=== PATIENT | female | born 1945 | race Caucasian/White ===

== ENCOUNTER 2024-03-10 10:23 | Outpatient (REF) | payer MEDICARE, SELFPAY ==
[2024-03-10 11:34] LABS: Erythrocyte Sedimentation Rate 7 MM/HR (0-20)
[2024-03-10 12:05] LABS: Folate 16.1 ng/mL (> or = 4.0); Vitamin B12 527 pg/mL (200-900)
[2024-03-10 12:30] LABS: Anion Gap 13 (12-20); Blood Urea Nitrogen 13 mg/dL (9-16); Calcium 10.1 mg/dL (8.4-10.2); Carbon Dioxide 26 mmol/L (22-29); Chloride 108 mmol/L (96-108); Estimated Glomerular Filt Rate 45; Glucose Random 109 mg/dL (60-115); Potassium 4.2 mmol/L (3.3-5.1); Sodium 143 mmol/L (135-145)
[2024-03-10 12:35] LABS: TSH reflex Free T4 0.74 uIU/mL (0.32-4.0)
== END 2024-03-10 10:24 | disposition home or self-care (01) ==
LOC: HO.LAB 10:23
PROVIDERS: PCP Internal Medicine; Visit Provider Psychiatry & Neurology Neurology
DX: G31.84 Mild cognitive impairment of uncertain or unknown etiology (principal)
CPT/HCPCS: 36415; 80048; 82607; 82746; 84443; 85652

== ENCOUNTER 2025-02-18 10:16 | Outpatient (AMB) | payer MEDICARE, SELFPAY ==
--- NOTE | 2025-02-18 10:42 | MHC.OFFVIS ---
Intake Visit Reasons: 6m Accompanied by: Son Allergies Penicillins (PENICILLINS) Allergy (Unknown, Unverified 02/18/25 10:46) SWELLING shellfish derived (SHELLFISH DERIVED) Allergy (Unknown, Unverified 02/18/25 10:46) SWELLING Medication List - Last Reconciled 02/18/25 by Jennifer Redd CNP amlodipine 10 mg PO DAILY omeprazole 20 mg PO DAILY sertraline 25 mg PO DAILY vibegron (Gemtesa) 75 mg PO DAILY HPI Comments Details: She was doing okay. Memory was about the same, some days better than others. Forgetful. Mood was okay, but could still be agitated at times. She was previously taking sertraline 50mg/day, but was now taking 25mg/day. Sleep was okay. No wandering or safety issues.?Needs help with bathing and dressing. Appetite was okay. She does some puzzles and watches TV during the day. Lives with her son and [id number]. Around 2021, she was noted to have some mild memory issues and mood swings where she would get angry and then 5 minutes later it was as if nothing ever happened. No triggers. Spends most of her time in her room watching TV. Sleeps a lot during the day and watches TV late into the night. Has chronic urinary incontinence. She needs help with personal hygiene and bathing, but does not resist bathing. Eats well. Gets adequate amount of sleep. Does not interact much with family. She never gets violent. No gait problems. 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 The largest lesion being in the left parietal area 1.4 x 1 x 1.3 cm. There is a history of a previous stroke in 2008 with some right-sided weakness which probably correlates with the left parietal area of MRI abnormality. She has a long history of high blood pressure for most of her life, hyperlipidemia, and osteoarthritis with knee and back pain. [facility], [facility] Medical History (Updated 02/18/25 @ 10:53 by Jennifer Redd CNP) Depression Vascular dementia MCI (mild cognitive impairment) Review of Systems Const Denies chills, Denies daytime sleepiness, Denies difficulty sleeping, Denies fatigue, Denies fever(s), Denies frequent falls, Reports headache(s), Denies increased appetite, Denies poor appetite, Denies snoring, Denies weakness, Denies weight gain and Denies weight loss Eyes Denies loss of vision ENT Denies vertigo, Reports dizziness, Reports headache(s) and Denies neck pain Card Denies chest pain at rest, Denies chest pain with activity, Denies syncope, Denies leg edema, Denies palpitations, Denies dyspnea and Denies dyspnea on exertion Resp Denies cough, Denies dyspnea, Denies dyspnea on exertion and Denies snoring GI Denies abdominal pain, Denies constipation, Denies heartburn, Denies diarrhea and Denies nausea Denies urinary frequency, Denies urinary incontinence and Denies urinary urgency Musc Denies abnormal gait, Reports back pain, Denies myalgias, Denies arthralgias, Denies neck pain, Denies numbness and Denies tingling Neuro Denies abnormal gait, Denies vertigo, Reports dizziness, Denies syncope, Denies frequent falls, Reports headache(s), Denies lack of coordination, Denies loss of vision, Reports memory loss, Denies numbness, Denies Other visual disturbances, Denies restless legs, Denies seizure-like activity, Denies tingling, Denies paresthesias, Denies tremor(s) and Denies weakness Psych Reports anxiety, Reports depression, Denies auditory hallucinations, Reports memory loss and Denies visual hallucinations Endo Denies fatigue and Denies palpitations Physical Exam Const Other: General Appearance:? normal, in no acute distress. Heart:? S1, S2 normal, no murmurs. Lungs:? clear anteriorly and posteriorly. Musculoskeletal:? normal. Extremities:? no edema. Psych:? alert, as below. Neuro Other: Abnormal Neurological Findings:?MMSE 22/30. Mental Status: alert, as below. Cranial Nerves: Pupils are equal, round, and reactive to light. External ocular muscles are intact. Visual willis are full, no ptosis. Face is symmetrical, no facial weakness or droop. Facial sensations are normal. Tongue protrudes in midline. Palate elevates symmetrically. Shoulder shrugging is normal Motor Examination: Normal muscle tone, bulk and strength. No atrophy or fasciculations. No drift of the extended upper extremities. DTR 2+. Plantars are flexor. Sensory Exam: Normal light touch, temperature, pinprick, vibration, and joint-position sensations. Rhomberg sign is absent. Coordination: No ataxia. No titubation. Gait Exam: Within normal limits. Cerebellar Signs: [id number] is okay. Extrapyramidal System: No tremor, rigidity with normal facial expressions. No bradykinesia. No bradyphrenia. Normal arm swing and posture. No propulsion or retropulsion. Speech: Normal. MMSE Level of Consciousness: Alert. Orientation: Knows correct year, month, date, day and season. Does not know correct city (says [place]) or county. Knows state. Does not know location (says [facility]). Knows correct floor. Registration: Able to register 3 objects. Attention: Serial 7's unable. Recall: Able to recall 1 out of 3 objects. Language: Normal spontaneous speech, fluency, repetition, naming, comprehension, reading, and writing. Total Score: 21/30. Results Reviewed Results Reviewed: 03/30/24 EEG-Mild abnormality with diffuse 7.5Hz slowing. Labs normal. MRI brain 11/21/22 mild to moderate white matter microvascular disease. The largest lesion being in the left parietal area 1.4 x 1 x 1.3 cm Assessment & Plan Assessment & Plan (1) Vascular dementia: Code(s): F01.50 - Vascular dementia, unspecified severity, without behavioral disturbance, psychotic disturbance, mood disturbance, and anxiety Category: Medical Qualifiers: Dementia severity: unspecified severity Dementia behavioral or psychological symptom: with mood disturbance Qualified Code(s): F01.53 - Vascular dementia, unspecified severity, with mood disturbance Plan: Start memantine 5mg 1 tablet twice a day, use/side effects reviewed. Stay physically and socially active. Follow up in 3 months or sooner as needed. (2) Depression: Code(s): F32.A - Depression, unspecified Category: Medical Qualifiers: Depression Type: unspecified Qualified Code(s): F32.A - Depression, unspecified Plan: Continue sertraline 25mg 1 tablet daily. Medications: New memantine (Namenda) 5 mg PO BID 180 tabs 0RF 90 days Coding Level of Care Code Est Pt Level 4 (11495) Diagnoses Vascular dementia with mood disturbance, unspecified dementia severity F01.53 Dementia severity: unspecified severity Dementia behavioral or psychological symptom: with mood disturbance Depression, unspecified depression type F32.A Depression Type: unspecified
--- OUTSIDE RECORDS SUMMARY | 2025-02-18 12:20 | XMS_ITS | Clinical Summary ---
Author Organization [facility] Address [address] [place] [address] Care Team Providers Care Car Repairer Helper Name Role Phone Unavailable Primary Care Provider Unavailabl e Source Comments PLEASE NOTE, if this patient is a minor, it may be UNLAWFUL to discuss sensitive information that is contained in these records (such as FAMILY PLANNING, MENTAL HEALTH or SUBSTANCE ABUSE) with the minor patient's parent or other person without the patient's specific authorization.[facility] Immunizations Immunization Administration Dates Next Due PFIZER COVID VACCINE, PURPLE CAP, 12+ 09/08/2020 ,08/18/2020 Social History Tobacco Use Types Packs/Day Years Used Date Smoking Tobacco: Never Assessed Social Connections Answer Date Recorded Social Connections and Isolation 0 08/18/2020 Financial Resource Strain Answer Date R ecorded Financial Resource Strain 0 2020 Stress Answer Date Recorded Stress 0 08/18/2020 Physical Activity Answer Date Recorded Physical Activity 0 08/18/2020 Food Insecurity Answer Date Recorded Food 0 08/18/2020 Transportation Needs Answer Date Record ed Transportation 0 08/18/2020 Housing Stability Answer Date Recorded Housing 0 08/18/2020 Safety and Environment Answer Date Luis rded Safety 0 08/18/2020 Utilities Answer Date Recorded Utilities 0 08/18/2020 Employment Answer Date Recorded Employment 0 08/18/2020 Comments Unknown Sex and Gender Information Value Date Recorded Sex Assigned at Not on file Legal Sex Female 10:23 AM PDT Gender Identity Not on file Sexual Orientation Not on file Plan of Treatment Health Maintenance Due Date Last Done Comments Tobacco Screening 1944 Hypertension Screening (#1) 1962 Medicare Annual Wellness Visit 1962 Imm-Zoster, Recombinant (1 of 2) 1994 Bone Density Screening 2009 Falls Prevention 2009 Imm-RSV (adult) (1 - 1-dose 75+ series) 2019 Imm-DTaP/Tdap/Td (2 - Td or Tdap) 10/24/2022 013 Alcohol and Drug Screen 04/08/2024 Depression Annual Screen 04/08/2024 [id number] ( season) 2024 021, 08/18/2020 Imm-Influenza (#1) 2024 02/16/2019, 0 12/31/2016, 02/26/2016, Additional history exists Imm-Pneumococcal 50+ Completed 10/12/2015, 07/22/19 13 Insurance [facility]
--- OUTSIDE RECORDS SUMMARY | 2025-02-18 12:20 | XMS_ITS | Clinical Summary ---
Author Organization [place] [address] [address] Address [address] [place] [phone] Phone Care Team Providers Care Avionics Electrical Engineer Name Role Phone See Garcia MD Primary Care Provider [phone] Allergies Active Allergy Reactions Criticality Noted Date Comments Other 08/20/2018 SEASONAL ALLERGIES Penicillins Anaphylaxis High 02/18/2012 Shellfish Derived 06/03/2017 Medications aspirin 81 mg EC tablet Take 1 Tablet by mouth daily. 4 Active acetaminophen (TYLENOL 8 HOUR) 650 mg 8 hr tablet TAKE 1 TABLET BY MOUTH TWICE DAILY 3 Active clotrimazole-be tamethasone (LOTRISONE) 1-0.05 % cream Apply 1 Application topically 2 (two) times a day. Apply to affected area 30 g 1 4 Active amLODIPine (NORVASC) 10 mg tablet Take 1 tablet (10 mg total) by mouth 1 (one) time each day. 90 tablet 3 5 05/21/19 26 Active irbesartan (AVAPRO) 300 mg tablet Take 1 tablet (300 mg total) by mouth 1 (one) time each day. Take 1 Tablet by mouth daily. 90 each 3 5 05/21/19 26 Active omeprazole (PriLOSEC) [address] capsule Take 1 capsule (20 mg total) by mouth 1 (one) time each day. 90 capsule 3 5 Active sertraline (ZOLOFT) 25 mg tablet Take 1 tablet (25 mg total) by mouth 1 (one) time each day. 90 tablet 3 5 Active atorvastatin (LIPITOR) 40 mg tablet TAKE 1 TABLET(40 MG) BY MOUTH AT BEDTIME 90 tablet 1 5 Active vibegron (Gemtesa) 75 mg tablet tablet Take 1 tablet (75 mg total) by mouth 1 (one) time each day. 90 tablet 3 5 01/03/20 26 Active Active Problems Problem Noted Date Diagnosed Date Cognitive impairment 12/15/2024 Assessment & Plan (12/15/2024 4:20 PM EDT): CKD stage 3a, GFR 45-59 ml/min (CMS/[facility] V24, CMS /[facility] V28) 08/18/2024 Assessment & Plan (12/15/2024 4:20 PM EDT): Major depressive disorder with current active ep isode 03/25/2024 Prediabetes 02/19/2024 Assessment & Plan (12/15/2024 4:20 PM EDT): Assessment & Plan (05/26/2024 10:58 AM EST): We will continue to follow hemoglobin A1c. Orders: Urology/Incontinence Supplies General supply request Shower chair General supply request Complete blood count; Future Comprehensive metabolic panel; Future Thyroid stimulating hormone; Future Hemoglobin A1c; Future Varicose veins of right lower extremity with leslee ma 05/21/2019 Gastroesophageal reflux disease without esophagi tis 05/21/[address] 02/22/2016 Overview (02/19/2024): CT done in the ER on 02/19/16 showed multiple small tiny lucencies in the calvarium Patient had evaluation with Dr. Charles - did not suspect cancer or multiple myeloma. Plasma studies reassuring. B12 deficiency 05/31/2013 Hyperlipemia 05/31/2013 Shoulder pain 11/25/2012 Bilateral cataracts 07/21/2012 Osteopenia 04/21/2012 Assessment & Plan (05/26/2024 10:58 AM EST): History of osteopenia. Will continue to follow. Orders: Urology/Incontinence Supplies General supply request Shower chair General supply request Complete blood count; Future Comprehensive metabolic panel; Future Thyroid stimulating hormone; Future Hemoglobin A1c; Future HTN (hypertension) 02/18/2012 Assessment & Plan (05/26/2024 10:58 AM EST): Blood pressure is reasonably controlled the office today, no change to current regimen which includes amlodipine, irbesartan. Orders: Urology/Incontinence Supplies General supply request Shower chair General supply request Complete blood count; Future Comprehensive metabolic panel; Future Thyroid stimulating hormone; Future Hemoglobin A1c; Future Encounters Date Type Department Care Team Description 02/15/2025 Telephone Adult Medicine [address] [phone] See Garcia MD 01/27/2025 9:52 AM EDT - 01/27/2025 11:59 PM EDT Hospital Encounter Radiology Department - [address] [phone] Abnormal mammogram Discharge Disposition: Home or Self Care 01/27/2025 9:51 AM EDT - 01/27/2025 11:59 PM EDT Hospital Encounter Radiology Department - [address] [phone] Abnormal mammogram Discharge Disposition: Home or Self Care 01/07/2025 10:45 AM EDT Office Visit Urogynecology - [address] [phone] Priti Cabello NP OAB (overactive bladder) (Primary Dx) 12/26/2024 11:07 AM EDT - 12/26/2024 11:59 PM EDT Hospital Encounter Radiology Department - [address] [phone] Encounter for screening mammogram for breast cancer Discharge Disposition: Home or Self Care 12/15/2024 11:15 AM EDT Office Visit Adult Medicine [address] [phone] See Garcia MD CKD stage 3a, GFR 45-59 ml/min (CMS/HCC V24, CMS/[facility] V28) (Primary Dx); Prediabetes; Memory deficit; Urinary incontinence, unspecified type; Cognitive impairment 12/09/2024 Telephone Adult Medicine [address] [phone] See Garcia MD from Last 3 Months Immunizations Immunization Administration Dates Next Due Influenza trivalent, 0.5mL ( Fluad) 65yo and older 12/22/2023,01/21/2023,02/16/2019,12/31,12/29/2014 Influenza trivalent, 0.5mL, preservative free (Fluarix; FluLaval; Fluzone) ages 6mo and older (Afluria) 3 years and older 02/26/2016,06/28/2014,04/21/2012 Influenza, Unspecified 02/02/2021 Pneumococcal conjugate 13 va lent (Prevnar 13, PCV13) 2mo and older 10/12/2015 Pneumococcal polysaccharide 23 valent (Pneumovax 23) 2yo and older 07/21/2012 Tdap Tetanus diptheria acell ular pertussis (Boostrix; Adacel) 7yo and older 10/24/2012 Surgical History Surgery Date Site/Laterality Comments HYSTERECTOMY 2006 PROCEDURE: HISTORICAL VAGINAL HYSTERECTOMY W/O BSO; COMMENT: prolapse CATARACT EXTRACTION Bilateral PROCEDURE: HISTORICAL CATARACT REMOVAL Medical History Medical History Date Comments HTN (hypertension) 02/18/2012 DX:HTN (hyper tension) CVA (cerebral infarction) 02/18/2012 DX:CVA (cerebral infarction) UTI (lower urinary tract infection) 02/19/2012 DX:UTI (lower urinary tract infection) Osteopenia 04/21/2012 DX:Osteopenia Bilateral cataracts 07/21/2012 DX:Bilateral cataracts Shoulder pain 11/25/2012 DX:Shoulder pain Hyperlipemia 05/31/2013 DX:Hyperlipemia B12 deficiency 05/31/2013 DX:B12 deficienc y Prediabetes DX:Prediabetes Gastroesophageal reflux dise ase without esophagitis 05/21/2019 DX:Gastroesophageal reflux d isease without esophagitis Family History Medical History Relation Name Comments No Known Problems Aunt No Known Problems Brother No Known Problems Father No Known Problems Maternal Grandfather No Known Problems Maternal Grandmother No Known Problems Mother No Known Problems Other No Known Problems Paternal Grandfather No Known Problems Paternal Grandmother Breast cancer Sister 55ish No Known Problems Uncle Blindness Neg Hx Cataracts Neg Hx Glaucoma Neg Hx Macular degeneration Neg Hx Strabismus Neg Hx Relation Name Status Comments Aunt Brother Father Maternal Grandfather Maternal Grandmother Mother Other Paternal Grandfather Paternal Grandmother Sister 55ish Alive Uncle Social History Tobacco Use Types Packs/Day Years Used Date Smoking Tobacco: Never Smokeless Tobacco: Never Tobacco Cessation:Counseling Given: Not Answered Alcohol Use Standard Drinks/Week Comments No 0 (1 standard drink = 0.6 oz pur e alcohol) Comments No Sex and Gender Information Value Date Recorded Sex Assigned at Not on file Legal Sex Female 12:40 PM EST Gender Identity Not on file Sexual Orientation Not on file Obstetrics History Para Term AB IAB SAB Ectopic Multiple Livin g Live Births 3 3 3 3 Date Outcome GA Total Labor Labor/2nd/3rd Weight Sex Type Anes PTL Tatianna A1 A5 Name Clin Term Term Term Last Filed Vital Signs Vital Sign Reading Time Taken Comments Blood Pressure 154/87 01/07/2025 10:38 AM EDT Pulse 87 01/07/2025 10:38 AM EDT Temperature 36.5 C (97.7 F) 12/15/2024 11:14 AM EDT Respiratory Rate 16 12/15/2024 11:14 AM EDT Oxygen Saturation 97% 05/26/2024 9:48 AM EST Inhaled Oxygen Concentration - - Weight 62.6 kg (138 lb) 12/15/2024 11:14 AM EDT Height 160 cm (5' 3 ) 05/26/2024 9:48 AM EST Body Mass Index 24.45 05/26/2024 9:48 AM EST Plan of Treatment Upcoming Encounters Date Type Department Care Team (Late st Contact Info) Description 03/31/2025 10:00 AM EST Office Visit Adult Medicine [address] [phone] See Garcia MD [address] [place] [address] 08/17/2025 2:00 PM EDT Office Visit [facility] [address] [place] [phone] Yonatan Gamboa MD [address] [place] [phone] Health Maintenance Due Date Last Done Comments Zoster Vaccines (1 of 2) 1964 RSV Immunization Adult Patients (1 - 1-dose 75+ series) 2019 Social Influencers of Health Screening 03/17/2022 DTaP,Tdap,and Td Vaccines (2 - Td or Tdap) 10/24/2022 10/24/2012 COVID-19 Vaccine ( - season) 2024 12/22/2023, 07/21/2022, 05/14/2021, Additional history exists Influenza Vaccine (#1) 2024 , 01/21/2023, 02/02/2021, Additional history exists Falls Risk Assessment 12/15/2025 12/15/2024, 023 Hypertension/CHF/CAD Annual BMP Blood Test 12/15/2025 12/15/2024, 06/03/2023 Medicare Annual Wellness Visit 12/15/2025 12/15/2024 Cholesterol Screening (Lipid Panel) 06/03/2028 06/03/2023 Osteoporosis Screening (Bone Density Screening) 03/27/2031 03/27/2021 Pneumococcal Vaccine: 50+ Years Completed 10/12/2015, 07/21/2012 Depression Screening Completed 12/15/2024, 11/18/19 24 HIB Vaccines Aged Out No longer eligi ble based on patient's age to complete this topic HPV Vaccines Aged Out No longer eligi ble based on patient's age to complete this topic Hepatitis A Vaccines Aged Out No long er eligible based on patient's age to complete this topic Hepatitis B Vaccines Aged Out No long er eligible based on patient's age to complete this topic IPV Vaccines Aged Out No longer eligi ble based on patient's age to complete this topic MMR Vaccines Aged Out No longer eligi ble based on patient's age to complete this topic Meningococcal ACWY Vaccine Aged Out N o longer eligible based on patient's age to complete this topic Meningococcal B Vaccine Aged Out No l onger eligible based on patient's age to complete this topic RSV Immunization Patients Under 20 months Aged Out No longer eligible based on patient's age to complete this topic Varicella Vaccines Aged Out No longer eligible based on patient's age to complete this topic Procedures Procedure Name Priority Date/Time Associated Diagnosis Comments US BREAST LIMITED RIGHT Routine 01/27/2025 10:39 AM EDT Abnormal mammogram MG MAMMO DIGITAL DIAGNOSTIC W BILL RIGHT Routine 01/27/2025 9:59 AM EDT Abnormal mammogram MG MAMMO DIGITAL SCREENING W BILL BILAT Routine 12/26/2024 11:16 AM EDT Encounter for screening mammogram for breast cancer COMPLETE BLOOD COUNT Routine 12/15/2024 12:14 PM EDT At risk for falls Prediabetes Primary hypertension Osteopenia, unspecified location COMPREHENSIVE METABOLIC PANEL Routine 12/15/2024 12:14 PM EDT At risk for falls Prediabetes Primary hypertension Osteopenia, unspecified location THYROID STIMULATING HORMONE Routine 12/15/2024 12:14 PM EDT At risk for falls Prediabetes Primary hypertension Osteopenia, unspecified location HEMOGLOBIN A1C Routine 12/15/2024 12:14 PM EDT At risk for falls Prediabetes Primary hypertension Osteopenia, unspecified location PROTEIN AND CREATININE WITH RATIO, URINE Routine 12/15/2024 12:14 PM EDT CKD stage 3a, GFR 45-59 ml/min ([facility] V24, CMS/[facility] V28) PARATHYROID HORMONE INTACT Routine 12/15/2024 12:14 PM EDT Chronic kidney disease (CKD) stage G3a/A1, moderately decreased glomerular filtration rate (GFR) between 45-59 mL/min/1.73 square meter and albuminuria creatinine ratio les* (CMS/[facility] V24, CMS/[facility] V28) HM DEPRESSION SCREENING Routine 11/18/2023 LIPID PANEL Routine 06/03/2023 HM FALLS RISK ASSESSMENT Routine 11/19/2022 DXA BONE DENSITY STUDY 1+ SITS AXIAL SKEL Routine 03/27/2021 9:36 AM EST Other specified disorders of bone density and structure, other site Pain in right shoulder Other chronic pain Pain in left shoulder from Last 3 Months or Most Recently Relevant to Health Maintenance Results * US Breast Limited Right (01/27/2025 10:39 AM EDT) Anatomical Region Laterality Modality Breast Right Ultrasound 01/27/2025 11:0 1 AM EDT Impressions 01/27/2025 11:03 AM EDT 1. No mammographic evidence of malignancy 2. Heterogeneously dense Findings and recommendations were conveyed to the patient. BI-RADS CATEGORY: 2 - BENIGN RECOMMENDATION: Return to annual mammography. Return to annual mammography. Mammo Location: [facility], [address] [place] [address], [phone], . -------- FINAL REPORT -------- Dictated By: Wilson Loya Dictated Date: 01/27/2025 11:01 ET Assigned Physician: Wilson Loya Reviewed and Electronically Signed By: Wilson Loya Signed Date: 01/27/2025 11:03 ET Workstation ID: [id number] Transcribed By: Self Edit Transcribed Date: 01/27/2025 11:01 ET Narrative 01/27/2025 11:03 AM EDT RIGHTDIGITAL DIAGNOSTIC 3D MAMMOGRAPHY HISTORY: Workup for CC view medial middle depth asymmetry COMPARISON: Mammogram from 12/26/2024 Technique: CC view spot compression 3-D FINDINGS: Right breast CC view medial middle depth asymmetry becomes equal in density on spot compression and is consistent with benign summation of fibroglandular tissue. Sonographic evaluation demonstrates no focal abnormality BREAST DENSITY: C - The breasts are heterogeneously dense which may obscure small masses. EXAM: RIGHT BREAST TARGETED ULTRASOUND EVALUATION HISTORY: Workup for CC view medial middle depth asymmetry TECHNIQUE: Ultrasonographic examination is performed using a linear array transducer. Targeted right breast ultrasound from 12:00 to 6:00 of the medial breast evaluate mammographic finding. Real-time sonographic scanning was also performed by the radiologist FINDINGS: From 12:00 to 6:00 of the medial breast, no sonographic evidence of malignancy or other focal abnormalities were identified at the right breast in area of mammographic concern Procedure Note Wilson Loya MD - 01/27/2025 RIGHTDIGITAL DIAGNOSTIC 3D MAMMOGRAPHY HISTORY: Workup for CC view medial middle depth asymmetry COMPARISON: Mammogram from 12/26/2024 Technique: CC view spot compression 3-D FINDINGS: Right breast CC view medial middle depth asymmetry becomes equal indensity on spot compression and is consistent with benign summation offibroglandular tissue. Sonographic evaluation demonstrates no focalabnormality BREAST DENSITY: C - The breasts are heterogeneously dense which mayobscure small masses. EXAM: RIGHT BREAST TARGETED ULTRASOUND EVALUATION HISTORY: Workup for CC view medial middle depth asymmetry TECHNIQUE: Ultrasonographic examination is performed using a linear arraytransducer. Targeted right breast ultrasound from 12:00 to 6:00 of themedial breast evaluate mammographic finding. Real-time sonographicscanning was also performed by the radiologist FINDINGS: From 12:00 to 6:00 of the medial breast, no sonographic evidence ofmalignancy or other focal abnormalities were identified at the rightbreast in area of mammographic concern IMPRESSION: 1. No mammographic evidence of malignancy 2. Heterogeneously dense Findings and recommendations were conveyed to the patient. BI-RADS CATEGORY: 2 - BENIGN RECOMMENDATION: Return to annual mammography. Return to annual mammography. Mammo Location: [facility], [address] [place] [address], [phone], . -------- FINAL REPORT -------- Dictated By: Wilson Loya Dictated Date: 01/27/2025 11:01 ET Assigned Physician: Wilson Loya Reviewed and Electronically Signed By: Wilson Loya Signed Date: 01/27/2025 11:03 ET Workstation ID: [id number] Transcribed By: Self Edit Transcribed Date: 01/27/2025 11:01 ET us See Garcia MD IMG US PROCEDURES Final Result * MG Mammo Digital Diagnostic w Bill Right (01/27/2025 9:59 AM EDT) Anatomical Region Laterality Modality Breast Right Mammography 01/27/2025 11:0 1 AM EDT Impressions 01/27/2025 11:03 AM EDT 1. No mammographic evidence of malignancy 2. Heterogeneously dense Findings and recommendations were conveyed to the patient. BI-RADS CATEGORY: 2 - BENIGN RECOMMENDATION: Return to annual mammography. Return to annual mammography. Mammo Location: [facility], [address] [place] [address], [id number], . -------- FINAL REPORT -------- Dictated By: Wilson Loya Dictated Date: 01/27/2025 11:01 ET Assigned Physician: Wilson Loya Reviewed and Electronically Signed By: Wilson Loya Signed Date: 01/27/2025 11:03 ET Workstation ID: [id number] Transcribed By: Self Edit Transcribed Date: 01/27/2025 11:01 ET Narrative 01/27/2025 11:03 AM EDT RIGHTDIGITAL DIAGNOSTIC 3D MAMMOGRAPHY HISTORY: Workup for CC view medial middle depth asymmetry COMPARISON: Mammogram from 12/26/2024 Technique: CC view spot compression 3-D FINDINGS: Right breast CC view medial middle depth asymmetry becomes equal in density on spot compression and is consistent with benign summation of fibroglandular tissue. Sonographic evaluation demonstrates no focal abnormality BREAST DENSITY: C - The breasts are heterogeneously dense which may obscure small masses. EXAM: RIGHT BREAST TARGETED ULTRASOUND EVALUATION HISTORY: Workup for CC view medial middle depth asymmetry TECHNIQUE: Ultrasonographic examination is performed using a linear array transducer. Targeted right breast ultrasound from 12:00 to 6:00 of the medial breast evaluate mammographic finding. Real-time sonographic scanning was also performed by the radiologist FINDINGS: From 12:00 to 6:00 of the medial breast, no sonographic evidence of malignancy or other focal abnormalities were identified at the right breast in area of mammographic concern Procedure Note Wilson Loya MD - 01/27/2025 RIGHTDIGITAL DIAGNOSTIC 3D MAMMOGRAPHY HISTORY: Workup for CC view medial middle depth asymmetry COMPARISON: Mammogram from 12/26/2024 Technique: CC view spot compression 3-D FINDINGS: Right breast CC view medial middle depth asymmetry becomes equal indensity on spot compression and is consistent with benign summation offibroglandular tissue. Sonographic evaluation demonstrates no focalabnormality BREAST DENSITY: C - The breasts are heterogeneously dense which mayobscure small masses. EXAM: RIGHT BREAST TARGETED ULTRASOUND EVALUATION HISTORY: Workup for CC view medial middle depth asymmetry TECHNIQUE: Ultrasonographic examination is performed using a linear arraytransducer. Targeted right breast ultrasound from 12:00 to 6:00 of themedial breast evaluate mammographic finding. Real-time sonographicscanning was also performed by the radiologist FINDINGS: From 12:00 to 6:00 of the medial breast, no sonographic evidence ofmalignancy or other focal abnormalities were identified at the rightbreast in area of mammographic concern IMPRESSION: 1. No mammographic evidence of malignancy 2. Heterogeneously dense Findings and recommendations were conveyed to the patient. BI-RADS CATEGORY: 2 - BENIGN RECOMMENDATION: Return to annual mammography. Return to annual mammography. Mammo Location: [facility], [address] [place] [place] [address], [phone], . -------- FINAL REPORT -------- Dictated By: Wilson Loya Dictated Date: 01/27/2025 11:01 ET Assigned Physician: Wilson Loya Reviewed and Electronically Signed By: Wilson Loya Signed Date: 01/27/2025 11:03 ET Workstation ID: [id number] Transcribed By: Self Edit Transcribed Date: 01/27/2025 11:01 ET See Garcia MD IMG BI PROCEDURES Final Result * (ABNORMAL) MG Mammo Digital Screening w Bill bilat (12/26/2024 11:16 AM EDT) Anatomical Region Laterality Modality Breast Bilateral Mammography 12/29/2024 5:31 PM EDT Impressions 12/29/2024 5:51 PM EDT 1. Left: No mammographic evidence of malignancy 2. Right: Indeterminate CC view slightly medial to the nipple middle depth asymmetry 3. Heterogeneous breast parenchyma BI-RADS CATEGORY: 0 - INCOMPLETE - NEED ADDITIONAL IMAGING EVALUATION RECOMMENDATION: Additional right breast imaging recommended. Right breast CC view spot compression, targeted ultrasound Mammo Location: [facility], [address] [place] [address], [phone], . -------- FINAL REPORT -------- Dictated By: Wilson Loya Dictated Date: 12/29/2024 17:31 ET Assigned Physician: Wilson Loya Reviewed and Electronically Signed By: Wilson Loya Signed Date: 12/29/2024 17:51 ET Workstation ID: [id number] Transcribed By: Self Edit Transcribed Date: 12/29/2024 17:31 ET Narrative 12/29/2024 5:51 PM EDT A BILATERAL DIGITAL 3D SCREENING MAMMOGRAPHY HISTORY: Routine screening. Family history of breast cancer in sister. COMPARISON: Multiple priors dating back to 10/19/2020 Technique: Bilateral full field digital mammography (3D) was performed using standard CC and MLO projections , left breast exaggerated CC CAD was used to evaluate this mammogram. FINDINGS: Right: Indeterminate cc view slightly medial to the nipple middle depth asymmetry. Left: No suspicious masses, groups of microcalcification or areas of architectural distortion identified. Stable typically benign parenchymal asymmetries. BREAST DENSITY: C - The breasts are heterogeneously dense which may obscure small masses. Procedure Note Wilson Loya MD - 12/29/2024 A BILATERAL DIGITAL 3D SCREENING MAMMOGRAPHY HISTORY: Routine screening. Family history of breast cancer in sister. COMPARISON: Multiple priors dating back to 10/19/2020 Technique: Bilateral full field digital mammography (3D) was performedusing standard CC and MLO projections , left breast exaggerated CC CAD was used to evaluate this mammogram. FINDINGS: Right: Indeterminate cc view slightly medial to the nipple middle depthasymmetry. Left: No suspicious masses, groups of microcalcification or areas ofarchitectural distortion identified. Stable typically benign parenchymalasymmetries. BREAST DENSITY: C - The breasts are heterogeneously dense which mayobscure small masses. IMPRESSION: 1. Left: No mammographic evidence of malignancy 2. Right: Indeterminate CC view slightly medial to the nipple middle depthasymmetry 3. Heterogeneous breast parenchyma BI-RADS CATEGORY: 0 - INCOMPLETE - NEED ADDITIONAL IMAGING EVALUATION RECOMMENDATION: Additional right breast imaging recommended. Right breast CC view spotcompression, targeted ultrasound Mammo Location: [facility], [address] [place] [address], [phone], . -------- FINAL REPORT -------- Dictated By: Wilson Loya Dictated Date: 12/29/2024 17:31 ET Assigned Physician: Wilson Loya Reviewed and Electronically Signed By: Wilson Loya Signed Date: 12/29/2024 17:51 ET Workstation ID: [id number] Transcribed By: Self Edit Transcribed Date: 12/29/2024 17:31 ET See Garcia MD IMG BI PROCEDURES Final Result * (ABNORMAL) Protein and creatinine with ratio, urine (12/15/2024 12:14 PM EDT) Protein, Urine 80 mg/dL LAB CHEMISTRY METHOD 12/15/2024 4:32 PM EDT [facility] Prot/Creat, Ur 0.55(H) <=0.20 mg/mg creat LAB CHEMISTRY METHOD 12/15/2024 4:32 PM EDT [facility] Creatinine, Urine 146.0 mg/dL LAB CHEMISTRY METHOD 12/15/2024 4:32 PM EDT [facility] Urine Urine specimen obtained by clean catch procedure / Unknown Non-blood Collection / Unknown 12/15/2024 12:14 PM EDT 12/15/2024 12:14 PM EDT Yonatan Gamboa MD LAB URINE ORDERABLES Final Resu lt [facility] [address] [place] [address], [place] [phone] * (ABNORMAL) Complete blood count (12/15/2024 12:14 PM EDT) [facility] WBC 6.4 4.8 - 10.8 K/mcL LAB HEMETOLOGY METHOD 12/15/2024 2:08 PM [facility] RBC 5.10(H) 3.80 - 4.80 M/mcL LAB HEMETOLOGY METHOD 12/15/2024 2:08 PM [facility] Hemoglobin 13.4 11.5 - 16.0 g/dL LAB HEMETOLOGY METHOD 12/15/2024 2:08 PM [facility] Hematocrit 43.8 35.0 - 47.0 % LAB HEMETOLOGY METHOD 12/15/2024 2:08 PM [facility] MCV 86.7 79.0 - 98.0 FL LAB HEMETOLOGY METHOD 12/15/2024 2:08 PM [facility] MCH 26.5(L) 27.0 - 32.0 pcg LAB HEMETOLOGY METHOD 12/15/2024 2:08 PM [facility] MCHC 30.6(L) 32.0 - 37.0 g/dL LAB HEMETOLOGY METHOD 12/15/2024 2:08 PM [facility] RDW 15.0 11.0 - 15.0 % LAB HEMETOLOGY METHOD 12/15/2024 2:08 PM [facility] Platelets 471(H) 130 - 400 K/mcL LAB HEMETOLOGY METHOD 12/15/2024 2:08 PM [facility] MPV 11.5(H) 7.0 - 11.0 FL LAB HEMETOLOGY METHOD 12/15/2024 2:08 PM [facility] NRBC 0.0 <1.0 % LAB HEMETOLOGY METHOD 12/15/2024 2:08 PM EDT [facility] NRBC Absolute 0.00 <0.10 K/mcL LAB HEMETOLOGY METHOD 12/15/2024 2:08 PM EDT [facility] Blood Venous blood specimen / Unknown Venipuncture / Unknown 12/15/2024 12:14 PM EDT 12/15/2024 12:14 PM EDT Andrea PURDY LAB BLOOD ORDERABLES Fin al Result Performing Organization Address [facility]/ZIP Co de Phone Number [facility] [address] [place] [address], [place] [phone] * Thyroid stimulating hormone (12/15/2024 12:14 PM EDT) TSH 0.56 0.40 - 4.00 mcIU/mL LAB CHEMISTRY METHOD 12/15/2024 6:11 PM EDT [facility] Blood Venous blood specimen / Unknown Venipuncture / Unknown 12/15/2024 12:14 PM EDT 12/15/2024 12:14 PM EDT Andrea PURDY LAB BLOOD ORDERABLES Fin al Result Performing Organization Address [facility]/ZIP Co de Phone Number [facility] [address] [place] [address], [place] [phone] * Parathyroid hormone intact (12/15/2024 12:14 PM EDT) PTH 66.2 18.5 - 88.0 pcg/mL LAB CHEMISTRY METHOD 12/15/2024 4:52 PM EDT [facility] Blood Venous blood specimen / Unknown Venipuncture / Unknown 12/15/2024 12:14 PM EDT 12/15/2024 12:14 PM EDT Yonatan Gamboa MD LAB BLOOD ORDERABLES Final Resu lt Performing Organization Address City/[facility]/ZIP Co de Phone Number [facility] [address] [place] [address], [place] [phone] * Hemoglobin A1c (12/15/2024 12:14 PM EDT) [facility] Hemoglobin A1C 5.6 <6.5 % LAB CHEMISTRY METHOD 12/15/2024 5:33 PM EDT [facility] Mean Bld Glu Estim. 114 mg/dL LAB CHEMISTRY METHOD 12/15/2024 5:33 PM EDT [facility] Blood Venous blood specimen / Unknown Venipuncture / Unknown 12/15/2024 12:14 PM EDT 12/15/2024 12:14 PM EDT Andrea PURDY LAB BLOOD ORDERABLES Fin al Result Performing Organization Address [facility]/ZIP Co de Phone Number [facility] [address] [place] [address], [place] [phone] * (ABNORMAL) Comprehensive metabolic panel (12/15/2024 12:14 PM EDT) [facility] Sodium 141 133 - 145 mmol/L LAB CHEMISTRY METHOD 12/15/2024 4:52 PM EDT [facility] Potassium 3.9 3.5 - 5.5 mmol/L LAB CHEMISTRY METHOD 12/15/2024 4:52 PM EDT [facility] Chloride 108 96 - 110 mmol/L LAB CHEMISTRY METHOD 12/15/2024 4:52 PM EDT [facility] CO2 25 21 - 32 mmol/L LAB CHEMISTRY METHOD 12/15/2024 4:52 PM EDT [facility] Anion Gap 8 3 - 11 LAB CHEMISTRY METHOD 12/15/2024 4:52 PM EDT [facility] Glucose 100 70 - 100 mg/dL LAB CHEMISTRY METHOD 12/15/2024 4:52 PM EDT [facility] BUN 16 5 - 25 mg/dL LAB CHEMISTRY METHOD 12/15/2024 4:52 PM [facility] Creatinine 1.20(H) 0.50 - 1.10 mg/dL LAB CHEMISTRY METHOD 12/15/2024 4:52 PM [facility] eGFR 46(L) >=60 mL/min/1. 73m2 LAB CHEMISTRY METHOD 12/15/2024 4:52 PM [facility] Comment:Calculation based on the Chronic Kidney Disease Epidemiology Collaboration (CKD-EPI) equation refit without adjustment for race. BUN/Creatinine Ratio 13.3 LAB CHEMISTRY METHOD 12/15/2024 4:52 PM [facility] Calcium 9.9 8.5 - 10.5 mg/dL LAB CHEMISTRY METHOD 12/15/2024 4:52 PM [facility] AST (SGOT) 25 10 - 42 unit/L LAB CHEMISTRY METHOD 12/15/2024 4:52 PM [facility] ALT (SGPT) 21 10 - 60 unit/L LAB CHEMISTRY METHOD 12/15/2024 4:52 PM [facility] Alkaline Phosphatase 99 42 - 121 unit/L LAB CHEMISTRY METHOD 12/15/2024 4:52 PM [facility] Total Protein 8.2(H) 6.0 - 8.0 g/dL LAB CHEMISTRY METHOD 12/15/2024 4:52 PM [facility] Albumin 4.0 3.2 - 5.0 g/dL LAB CHEMISTRY METHOD 12/15/2024 4:52 PM [facility] Total Bilirubin 0.6 0.0 - 1.4 mg/dL LAB CHEMISTRY METHOD 12/15/2024 4:52 PM [facility] Blood Venous blood specimen / Unknown Venipuncture / Unknown 12/15/2024 12:14 PM EDT 12/15/2024 12:14 PM EDT Andrea PURDY LAB BLOOD ORDERABLES Fin al Result [facility] [address] [place] [address], [place] [phone] * Depression Screening (11/18/2023) Depression Screening Abstracted Historical Provider HEALTH MAINTENANCE Final Result * Lipid panel (06/03/2023) LDL/HDL Ratio 2 0 - 4 Triglycerides 94 0 - 150 mg/dL Cholesterol 163 0 - 200 mg/dL HDL 68 >=40 mg/dL LDL Cholesterol 77 0 - 100 mg/dL Blood Venous blood specimen / Unknown Historical Provider LAB BLOOD ORDERABLES Jessenia l Result * Falls Risk Assessment (11/19/2022) Pathologist [facility] [place] Risk Assessment Abstracted Historical Provider HEALTH MAINTENANCE Final Result * DXA BONE DENSITY STUDY 1+ SITS AXIAL SKEL (03/27/2021 9:36 AM EST) Anatomical Region Laterality Modality Bone Densitometr y 02/08/2021 11:2 0 AM EDT Narrative 03/27/2021 11:02 AM EST BONE DENSITY (DEXA) Lumbar Spine T-score is -2.0. (SD relative to 20-29 y/o adult) Z-score is 0.5. (SD relative to age matched peers) This is considered osteopenia by WHO criteria. Left Hip T-score is -1.4. Z-score is 0.6. This is considered osteopenia by WHO criteria. IMPRESSION: This patient is considered to have osteopenia by WHO criteria. This patient has a 6.8% risk of major osteoporotic fracture and a 1.4% risk of hip fracture over the next 10 years. (World Health Organization Fracture Risk Assessment) [facility] Department of Internal Medicine recommends using National Osteoporosis Foundation (NOF) guidelines in treatment decisions related to osteoporosis. NOF guidelines suggest considering treatment for postmenopausal women and men aged 50 or older presenting with the following: History of hip or vertebral fracture. T-score = -2.5 (DXA) at the femoral neck, total hip, or spine, after appropriate evaluation to exclude secondary causes. Low bone mass (T-score between -1.0 and -2.5 at the femoral neck or spine) AND a 10-year probability of a hip fracture = 3% OR a 10-year probability of a major osteoporosis-related fracture = 20% based on the [place]-adapted WHO algorithm Please note that all treatment decisions require clinical judgment and consideration of individual patient factors, including patient preferences, co-morbidities, previous drug use, risk factors not captured in the FRAX model (e.g., frailty, falls, vitamin D deficiency, increased bone turnover, interval significant decline in bone density) and possible under- or over-estimation of fracture risk by FRAX. Optional alternative screening schedule based on epifanio Palacio., [facility] April 26, 2011 for patients with osteopenia (based on hip BMD T-score) is as follows: * advanced osteopenia (T scores -2.00 to -2.49), BMD testing every year * moderate osteopenia (T scores -1.50 to -1.99), BMD testing every 5 years mild osteopenia or normal BMD (T scores -1.50 and higher), BMD testing every 15 years Procedure Note Parris Hood MD - 03/27/2022 BONE DENSITY (DEXA) Lumbar Spine T-score is -2.0. (SD relative to 20-29 y/o adult) Z-score is 0.5. (SD relative to age matched peers) This is considered osteopenia by WHO criteria. Left Hip T-score is -1.4. Z-score is 0.6. This is considered osteopenia by WHO criteria. IMPRESSION: This patient is considered to have osteopenia by WHO criteria. Thispatient has a 6.8% risk of major osteoporotic fracture and a 1.4% risk of hip fracture over the next10 years. (World Health Organization Fracture Risk Assessment) [facility] Department of Internal Medicine recommendsusing National Osteoporosis Foundation (NOF) guidelines in treatment decisions related toosteoporosis. NOF guidelines suggest considering treatment for postmenopausal women and menaged 50 or older presenting with the following: History of hip or vertebral fracture. T-score = -2.5 (DXA) at the femoral neck, total hip, or spine, afterappropriate evaluation to exclude secondary causes. Low bone mass (T-score between -1.0 and -2.5 at the femoral neck or spine)AND a 10-year probability of a hip fracture = 3% OR a 10-year probability of a majorosteoporosis-related fracture = 20% based on the [place]-adapted WHO algorithm Please note that all treatment decisions require clinical judgment andconsideration of individual patient factors, including patient preferences, co- morbidities,previous drug use, risk factors not captured in the FRAX model (e.g., frailty, falls, vitaminD deficiency, increased bone turnover, interval significant decline in bone density) andpossible under- or over-estimation of fracture risk by FRAX. Optional alternative screening schedule based on tori Palacio al., [facility] for patients with osteopenia (based on hip BMD T-score) is as follows: * advanced osteopenia (T scores -2.00 to -2.49), BMD testing every year * moderate osteopenia (T scores -1.50 to -1.99), BMD testing every 5years mild osteopenia or normal BMD (T scores -1.50 and higher), BMD testingevery 15 years Rg PURDY Thanh DXA PROCEDURES Final Result from Last 3 Months or Most Recently Relevant to Health Maintenance Insurance [facility] MEDICARE Member Subscriber Plan / Payer (Ef fective 2024-Present) Name:Francesca Rosales Relation to Subscriber:Self Name:Francesca Wood Payer ID:[id number] Group ID:[id number] Type:Not on file Address: [address] [place] [address] Care Teams Avionics Electrical Engineer Relationship Specialty Start Date End Date See Garcia MD [address] [place] [id number] PCP - General Internal Medicine 02/01/21
--- OUTSIDE RECORDS SUMMARY | 2025-02-18 12:20 | XMS_ITS | Encounter Summary ---
Author Organization [employer] Address [address] [place] [address] Care Team Providers Care Oil Pump Station Operator Chief Name Role Phone See Garcia MD Primary Care Provider [phone] Reason for Visit * Reason Onset Date Comments faxed order 02/15/2025 [facility] Encounter Details Date Type Department Care Team (Late st Contact Info) Description 02/15/2025 Telephone Adult Medicine [facility] [address], [place] [phone] See Garcia MD [address] [place] [address] Social History Tobacco Use Types Packs/Day Years Used Date Smoking Tobacco: Never Smokeless Tobacco: Never Alcohol Use Standard Drinks/Week Comments No 0 (1 standard drink = 0.6 oz pur e alcohol) Comments No Sex and Gender Information Value Date Recorded Sex Assigned at Not on file Legal Sex Female 12:40 PM EST Gender Identity Not on file Sexual Orientation Not on file documented as of this encounter Progress Notes * Shannan Lee MA - 02/17/2025 1:33 PM EST Form filled out & faxed per patient request Via [employer] Fax on February 17, 2025 at 1:33 pm. * Mora Evans MA - 02/16/2025 2:34 PM EST Form has been filled out and is going to be sent to Dr. Priya Garcia MD for signature . * Sabra Maribel - 02/16/2025 8:54 AM EST Ann-Marie with [facility] is calling. States this PCP order form has been faxed numerous times since November. States that patient is up for renewal of services and if form isn't received by end of week services will be terminated. Can this please be reviewed and faxed back FRED * Graciela Douglas - 02/15/2025 11:02 AM EST Faxed order received from [facility] PCP order form please sign and fax to [phone]. documented in this encounter Plan of Treatment Upcoming Encounters Date Type Department Care Team (Late st Contact Info) Description 03/31/2025 10:00 AM EST Office Visit Adult Medicine [facility] [address], [place] [phone] See Garcia MD [address], [place] 08/17/2025 2:00 PM EDT Office Visit [facility]phrology - [address] [place] [phone] Yonatan Gamboa MD [address] [place] [address] documented as of this encounter Visit Diagnoses Not on filedocumented in this encounter Additional Health Concerns Assessment Noted Time PHQ-9 Depression Total Score: 4 12/16/19 25 11:19 AM EDT A fall risk assessment has been complete d for the patient 12/15/2024 11:16 AM EDT documented as of this encounter Care Teams Oil Pump Station Operator Chief Relationship Specialty Start Date End Date See Garcia MD [address] [place] [address] PCP - General Internal Medicine 02/01/21 documented as of this encounter
--- OUTSIDE RECORDS SUMMARY | 2025-02-18 12:20 | XMS_ITS | Encounter Summary ---
Author Organization [employer] Address [address] [place] [address] Care Team Providers Care Rivet Sorter Name Role Phone See Garcia MD Primary Care Provider [phone] Reason for Visit * Reason Onset Date Comments faxed order 12/09/2024 [facility] alonso Encounter Details Date Type Department Care Team (Late st Contact Info) Description 12/09/2024 Telephone Adult Medicine [facility] [address] [place], [place] [phone] See Garcia MD [address] [place] [address] Social History Tobacco Use Types Packs/Day Years [...] Notes * Shannan Lee MA - 02/17/2025 3:45 PM EST Form signed and faxed back via [employer] Fax on 02.17.2025 * Autumn Rogers - 02/12/2025 9:08 AM EST [facility] is still waiting for the PCP order form, they received office notes on 02/05 but not the order form. Please review today and send back to them. * Michelle Lyons - 02/05/2025 9:18 AM EDT [facility] is calling stating fax was received but did not received physical order form, . * Jayne De La Vega MA - 02/04/2025 11:22 AM EDT Office notes from 12/15/24 refaxed to [facility] [phone] Attention Lois via rightfax. * Sujatha Mohan - 02/02/2025 9:32 AM EDT [facility] did not receive please refax to # [phone] * Shari Nguyen MA - 01/19/2025 3:07 PM EDT refaxed * Michelle Lyons - 01/19/2025 11:34 AM EDT They never received please re fax to [phone] - ATT Lois, they stated its been 2 months and need this fax to continue services for pt. * Jayne De La Vega MA - 01/13/2025 9:49 AM EDT 12/15/24 office notes faxed via right fax. * Sujatha Mohan - 01/05/2025 9:24 AM EDT Please fax [phone] Missing 12/15/2024 office notes and POS. * Autumn Rogers - 12/31/2024 10:01 AM EDT [employer] is calling on this again, please advise. Do you have the form? Please fax to [phone]. A previous fax number starting with [phone] is not correct. * Theresa Alanis - 12/29/2024 9:45 AM EDT Lois is calling to inquire about the status of this form and office notes from her last AWV please advise. * Mora Evans MA - 12/23/2024 12:25 PM EDT Joyce can you please check if Dr. Gracia has this order, please and thank you. * Sujatha Mohan - 12/23/2024 9:00 AM EDT Please fax [phone] PCP order form and office notes from 12/15/2024 * Graciela Douglas - 12/09/2024 2:32 PM EDT Faxed order received from [facility] [employer] [facility] PCP order form please sign and fax to [phone]. documented in this encounter Plan of Treatment Upcoming Encounters Date Type Department Care Team (Late st Contact Info) Description 03/31/2025 10:00 AM EST Office Visit Adult Medicine [facility] [address] [place] [address] See Garcia MD [address], [place] 08/17/2025 2:00 PM EDT Office Visit Nephrology - [address] [place] [phone] Yonatan Gamboa MD [address] [place] [address] documented as of this encounter Visit Diagnoses Not on filedocumented in this encounter Care Teams Rivet Sorter Relationship Specialty Start Date End Date See Garcia MD [address] [place] [address] PCP - General Internal Medicine 02/01/21 documented as of this encounter
== END 2025-02-18 10:56 | disposition home or self-care (01) ==
LOC: HO.HSM 10:16
PROVIDERS: PCP Internal Medicine; Referring Provider Internal Medicine; Visit Provider Registered Nurse
DX: F01.53 Vascular dementia, unspecified severity, with mood disturbance (principal); F32.A Depression, unspecified
CPT/HCPCS: 99214

== ENCOUNTER → 2025-02-18 10:16 | Outpatient (BNVA) | payer MEDICARE, SELFPAY | PROVIDERS: PCP Internal Medicine; Referring Provider Internal Medicine; Visit Provider Registered Nurse | DX: F01.53 Vascular dementia, unspecified severity, with mood disturbance (principal); F32.A Depression, unspecified | CPT/HCPCS: 99212 ==